=== PATIENT | female | born 1975 | race Caucasian/White ===

== ENCOUNTER 2016-10-13 15:30 | Emergency (ER) | payer OTHER ==
[~2016-10-13] VITALS: Ht 149.9 cm; Wt 53.2 kg
[~2016-10-13 15:30] MED LIST: CARISOPRODOL350 MG PO; NOHOMEMEDS; OXYCONTIN20 MG PO; ZOLPIDEM TART6.25 MG PO
[2016-10-13] MEDS ORDERED: XARELTO20 MG PO (15:56)
[2016-10-13 16:44] LABS: HEMATOCRIT 46.5 % (36.0-46.0); MCH 30.3 PG (29.0-34.0); MCV 89.1 FL (83-99); MEAN PLAT.VOLUME 9.5 uM^3 (9.5-12.4); RBC DIS.WIDTH-CV 13.8 % (11.8-14.6); RED BLOOD COUNT 5.22 M/uL (3.80-5.20)
[2016-10-13 16:46] LABS: PLATELET COUNT 512 K/uL (156-360); WHITE BLOOD COUNT 13.7 K/uL (4.1-10.2)
[2016-10-13 16:55] LABS: CHLORIDE 95 mEq/L (99-109); POTASSIUM 3.5 mEq/L (3.7-5.4); SODIUM 139 mEq/L (136-147)
[2016-10-13 16:57] LABS: GLUCOSE 107 mg/dL (70-99)
[2016-10-13 16:58] LABS: ANION GAP 17 MEQ/L (2-14)
[2016-10-13 16:59] LABS: TOTAL BILIRUBIN 0.7 mg/dL (0.0-1.0)
[2016-10-13 17:00] LABS: ALKALINE PHOSPHATASE 93 IU/L (3-129)
[2016-10-13 17:01] LABS: GFR ESTIMATE (CALCULATED) > 59 mL/min/
[2016-10-13 17:02] LABS: UREA NITROGEN (BUN) 14 mg/dL (9-23)
[2016-10-13 17:04] LABS: LIPASE 5 U/L (1.0-51.0)
[2016-10-13 17:12] LABS: QUANTITATIVE HCG < 4.0 MIU/ML
[2016-10-13] MEDS ORDERED: BENTYL20 MG PO (19:17)
[2016-10-13] MEDS ORDERED: ZOFRAN ODT4 MG PO (19:17)
[2016-10-13 19:31] VITALS: BP 170/105
== END 2016-10-13 19:31 | disposition home or self-care (01) ==
LOC: EME 15:30
PROVIDERS: Nurse Practitioner Family
DX: R10.11 Right upper quadrant pain (principal); R11.2 Nausea with vomiting, unspecified; Z86.718 Personal history of other venous thrombosis and embolism; Z86.711 Personal history of pulmonary embolism; Z87.442 Personal history of urinary calculi; F17.200 Nicotine dependence, unspecified, uncomplicated
CPT/HCPCS: 74177; 80053; 83605; 83690; 84702; 85027; 99281; 99285; J1885; J2765; J3010; J7040

== ENCOUNTER 2017-05-13 10:37 | Day surgery (SDC) | payer OTHER ==
[~2017-05-13] VITALS: Ht 149.9 cm; Wt 56.7 kg
[~2017-05-13 10:37] MED LIST changes: +AMBIEN10 MG PO; +BENTYL20 MG PO; +NEURONTIN800 MG PO; +PERCOCET 7.51 TABLET PO; +XARELTO20 MG PO; +ZOFRAN ODT4 MG PO
== END 2017-05-13 12:50 | disposition home or self-care (01) ==
LOC: PAIN 10:37
DX: M47.816 Spondylosis without myelopathy or radiculopathy, lumbar region (principal); M51.36 Other intervertebral disc degeneration, lumbar region; M54.5 Low back pain; G89.29 Other chronic pain; M54.12 Radiculopathy, cervical region; F17.200 Nicotine dependence, unspecified, uncomplicated; Z86.718 Personal history of other venous thrombosis and embolism; Z86.711 Personal history of pulmonary embolism; Z79.01 Long term (current) use of anticoagulants; Z79.891 Long term (current) use of opiate analgesic
CPT/HCPCS: J1030; J2250; J3010; S0020